=== PATIENT | female | born 1970 | race Caucasian/White ===

== ENCOUNTER 2016-12-10 04:01 | Emergency (ER) ==
[2016-12-10 04:14] VITALS: BP 153/86; TEMP 98.7; BMI 32.8
[2016-12-10] MEDS ORDERED: DILAUDID 2 MG/ML SYRINGE IM STA ×2 (04:53→05:40)
[2016-12-10] MEDS ORDERED: ZOFRAN 4 MG/2 ML IM STA (04:53)
--- NOTE | 2016-12-10 04:59 | ED.PDOC ---
General ED Provider: Dr. BEVERLY ULRICH Chief Complaint: Kidney Stone Stated Complaint: been hurting in the left side of the abdomen, has h/i kidney stones. Time Seen by Physician: 04:57 Mode of Arrival: Walk-In Information Source: Patient Primary Care Provider: BEVERLY ULRICH[facility] Nursing and Triage Documentation Reviewed and Agree: Yes GI Complaint Exam - Abdominal Pain Complaint/Exam Onset: Gradual Symptoms Are: Still present Timing: Constant Initial Severity: Severe Current Severity: Severe Location of Pain: LLQ Radiates To: Reports: Back, Flank Character: Reports: Aching, Throbbing Aggravating: Reports: Movement, Deep breaths Alleviating: Reports: None Associated Signs and Symptoms: Reports: Nausea, Vomiting. Denies: Diaphoresis, Fever, Cough, Chest pain, Dizziness, Back pain, Constipation, Blood in stool, Dysuria, Urinary frequency, Decreased urine output, Decreased appetite, Vaginal bleeding, Vaginal discharge, Diarrhea, Sore throat, Decreased activity Related History: Reports: Similar episode AAA Risk Factors: Reports: None Cardiac Risk Factors: Reports: None Ectopic Risk Factors: Reports: None Ovarian Torsion Risk Factors: Reports: None Surgical Obstruction Risk Factors: Reports: None Related Surgical History: Reports: None Patient Rh Status: Unknown Abdominal Findings: Absent: Pulsatile mass, Abdominal distention, Unequal femoral pulses, Rebound tenderness, CVA Tenderness Differential Diagnoses: Renal Colic, Ureteral Stone Review of Systems - Review Of Systems Constitutional: Reports: Malaise, Weakness Eyes: Reports: No symptoms Ears, Nose, Mouth, Throat: Reports: No symptoms Respiratory: Reports: No symptoms Cardiac: Reports: No symptoms GI: Reports: Abdominal pain, Nausea, Vomiting : Reports: No symptoms Musculoskeletal: Reports: No symptoms Skin: Reports: No symptoms Neurological: Reports: No symptoms Endocrine: Reports: No symptoms Hematologic/Lymphatic: Reports: No symptoms All Other Systems: Reviewed and Negative Past Medical History - Past Medical History Previously Healthy: Yes Endocrine: Reports: None Cardiovascular: Reports: None, Other (MVP) Respiratory: Reports: None Hematological: Reports: None Gastrointestinal: Reports: None Genitourinary: Reports: Kidney stones Neuro/Psych: Reports: Migraine Musculoskeletal: Reports: None Cancer: Reports: None Last Menstrual Period: 2004 Other Pertinent Past Medical History: BREAST REDUCTION, GALLBLADDERks migr mvp - Surgical History General Surgical History: Reports: Hysterectomy, Cholecystectomy, Other (BREAST REDUCTION, GALLBLADDER) - Family History Family History: Reports: Unknown - Social History Smoking Status: Never smoker Hx Substance Use: No Alcohol Screening: None - Immunizations Tetanus Shot up to Date: Yes Physical Exam - Physical Exam Appearance: Ill-appearing, Obese Ill-appearing: Severe Pain Distress: Severe Eyes: FERNANDA, EOMI, Conjunctiva clear ENT: Ears normal, Nose normal, Oropharynx normal Respiratory: Airway patent, Breath sounds clear, Breath sounds equal, Respirations nonlabored Cardiovascular: RRR, Pulses normal, No rub, No murmur GI/: Soft, Tender, Bowel sounds hypoactive Musculoskeletal: Normal strength, ROM intact, No edema, No calf tenderness Skin: Warm, Dry, Normal color Neurological: Sensation intact, Motor intact, Reflexes intact, Cranial nerves intact, Alert, Oriented Psychiatric: Affect appropriate, Mood appropriate Interpretation - Radiology Interpretation Radiology Interpretation By: Radiologist Radiology Results: Positive Exam Interpreted: CT Scan Critical Care Note - Critical Care Note Total Time (mins): 0 Course - Course Hematology/Chemistry: 12/10/16 05:40 12/10/16 05:40 Orders, Labs, Meds: Lab Review 12/10/16 12/10/16 05:08 05:40 WBC 10.49 H RBC 4.41 Hgb 13.0 Hct 39.5 MCV 89.6 MCH 29.5 MCHC 32.9 RDW Coeff of Arielle 14.0 Plt Count 279 Immature Gran % (Auto) 0.5 Neut % (Auto) 60.4 Lymph % (Auto) 29.7 [place] % (Auto) 6.8 Eos % (Auto) 2.0 Baso % (Auto) 0.6 Immature Gran # (Auto) 0.1 Neut # 6.3 Lymph # 3.1 [place] # 0.7 Eos # 0.2 Baso # 0.1 Sodium 140 Potassium 4.2 Chloride 107 Carbon Dioxide 25 Anion Gap 12.2 BUN 15 Creatinine 0.86 Estimated GFR (MDRD) 71.00 BUN/Creatinine Ratio 17.44 Glucose 106 Calcium 9.1 Total Bilirubin 0.29 AST 19 ALT 27 Alkaline Phosphatase 120 H Total Protein 7.1 Albumin 3.5 Globulin 3.6 Albumin/Globulin Ratio 0.97 Urine Color Yellow Urine Clarity Slightly Urine pH 5.5 Ur Specific Sharon >=1.030 Urine Protein Negative Urine Glucose (UA) Negative Urine Ketones Negative Urine Blood Trace-lysed Urine Nitrite Negative Urine Bilirubin Negative Urine Urobilinogen 0.2 Ur Leukocyte Esterase Negative Urine Microscopic RBC 0-2 Urine Microscopic WBC 0-2 Ur Squamous Epith Cells 10-20 Orders Category Date Time Status CBC W/ AUTO DIFF Stat LAB 12/10/16 05:40 Completed COMPREHENSIVE METABOLIC PANEL Stat LAB 12/10/16 05:40 Completed URINALYSIS C & S IF INDICATED Stat LAB 12/10/16 05:08 Completed Hydromorphone HCl/Pf [Dilaudid 2 mg/ml Syringe] MEDS 12/10/16 04:53 Discontinued 2 mg IM ONCE STA Hydromorphone HCl/Pf [Dilaudid 2 mg/ml Syringe] MEDS 12/10/16 05:40 Discontinued 2 mg IM ONCE STA Ondansetron HCl/Pf [Zofran 4 mg/2 ml] MEDS 12/10/16 04:53 Discontinued 4 mg IM ONCE STA Tamsulosin HCl [Flomax] MEDS 12/10/16 06:34 Discontinued 0.4 mg PO ONCE STA CT ABDOMEN/PELVIS WO CONTRAST Stat RADS 12/10/16 04:47 Completed Medications Discontinued Medications Generic Name Dose Route Start Last Admin Trade Name Freq PRN Reason Stop Dose Admin Hydromorphone HCl 2 mg 12/10/16 04:53 12/10/16 05:02 Dilaudid 2 Mg/Ml Syringe IM 12/10/16 04:54 2 mg ONCE STA Administration Hydromorphone HCl 2 mg 12/10/16 05:40 12/10/16 06:07 Dilaudid 2 Mg/Ml Syringe IM 12/10/16 05:41 2 mg ONCE STA Administration Ondansetron HCl 4 mg 12/10/16 04:53 12/10/16 05:04 Zofran 4 Mg/2 Ml IM 12/10/16 04:54 4 mg ONCE STA Administration Tamsulosin HCl 0.4 mg 12/10/16 06:34 Flomax PO 12/10/16 06:35 ONCE STA Vital Signs: Temp Pulse Resp BP Pulse Ox 12/10/16 04:02 98.7 F 81 20 153/86 H 97 Departure - Departure Time of Disposition: 07:14 Disposition: HOME SELF-CARE Discharge Problem: Kidney stone Instructions: Renal Colic (ED) Condition: Stable Pt referred to PMD for follow-up: Yes Additional Instructions: increase hydration needs f./u with urologist Prescriptions: Ondansetron [Zofran Odt] 4 mg PO Q8H #20 tab.rapdis Oxycodone HCl/Acetaminophen [Percocet 7.5-325 mg Tablet] 1 tab PO TID PRN #12 tablet PRN Reason: PAIN Allergies/Adverse Reactions: Allergies cephalexin monohydrate [From Keflex] Adverse Reaction (Verified 12/10/16 04:09) meperidine HCl [From Demerol] Adverse Reaction (Verified 12/10/16 04:09) morphine Adverse Reaction (Verified 12/10/16 04:09) Home Medications: Ambulatory Orders Ibuprofen [Motrin] 600 mg PO Q6H PRN #30 tablet 08/11/16 Ondansetron [Zofran Odt] 4 mg PO Q8H #20 tab.rapdis 12/10/16 Oxycodone HCl/Acetaminophen [Percocet 7.5-325 mg Tablet] 1 tab PO TID PRN #12 tablet 12/10/16 Disposition Discussed With: Patient, Family
[2016-12-10 05:22] LABS: BILIRUBIN,URINE Negative (NEGATIVE); KETONES,URINE Negative (NEGATIVE); LEUKOCYTE ESTERASE ,URINE Negative (NEGATIVE); NITRITE,URINE Negative (NEGATIVE); PH,URINE 5.5 (5-9); PROTEIN,URINE Negative (NEGATIVE); URINE, BLOOD Trace-lysed (NEGATIVE)
[2016-12-10 05:38] LABS: ADD URINE MICROSCOPIC YES
[2016-12-10 05:42] LABS: BASOPHILS # (AUTO) 0.1 K/uL (0-0.2); BASOPHILS % (AUTO) 0.6 % (0.0-3.0); EOSINOPHILS # (AUTO) 0.2 K/ul (0.0-0.7); HEMATOCRIT 39.5 % (37.0-47.0); IMMATURE GRANULOCYTE % (AUTO) 0.5 % (0.0-5.0); LYMPHOCYTES # (AUTO) 3.1 K/uL (0.60-3.4); LYMPHOCYTES % (AUTO) 29.7 (10.0-50.0); MEAN CORPUSCULAR HEMOGLOBIN 29.5 pg (27.0-31.0); MEAN CORPUSCULAR HGB CONC 32.9 (31.8-35.4); MEAN CORPUSCULAR VOLUME 89.6 fl (81.0-99.0); MONOCYTES # (AUTO) 0.7 K/uL (0.4-2.0); MONOCYTES % (AUTO) 6.8 (0-10); NEUTROPHILS # (AUTO) 6.3 K/ul (2.0-6.9); NEUTROPHILS % (AUTO) 60.4; PLATELET COUNT 279 10^3/uL (140-440); RED BLOOD COUNT 4.41 10^6/ul (4.20-5.40); WHITE BLOOD COUNT 10.49 K/ul (4.6-10.2)
[2016-12-10 06:06] LABS: ALBUMIN 3.5 g/dL (3.4-5.0); ALBUMIN/GLOBULIN RATIO 0.97; ANION GAP 12.2; BILIRUBIN,TOTAL 0.29 mg/dL (0.00-1.20); BUN/CREATININE RATIO 17.44; CALCIUM 9.1 mg/dL (8.2-10.2); CREATININE 0.86 mg/dL (0.60-1.30); POTASSIUM 4.2 mmol/L (3.5-5.10); TOTAL PROTEIN 7.1 g/dL (6.4-8.2)
--- NOTE | 2016-12-10 06:31 | CT ---
Exam: CT of the abdomen and pelvis without contrast History: Flank pain Technique: [address] of the abdomen and pelvis without intravascular contrast FINDINGS: The lung bases are clear. No significant liver abnormality. The adrenals, pancreas and sp regina are unremarkable. The stomach and hiatus are unremarkable. Prior cholecystectomy. Diverticulos is of the transverse duodenum. Punctate nonobstructing calculus in the left kidney. The left urete r is prominent compared with contralateral side. There is a 2 mm ureterovesicular junction calculus on the left. The appendix is normal. Normal caliber bowel loops. No inflammation of the mesenter y or retroperitoneum. Vascular structures appear normal by noncontrast CT. Colonic diverticulosis of the sigmoid. No inflammation of the pelvic fat. Left ureterovesicular ju nction calculus described above. Prior hysterectomy. Normal urinary bladder. No acute findings of the skeleton. Impression: 1. Mild left hydroureter with 2 mm ureterovesicular junction calculus. 2. Punctate nonobstructing calculus in the left kidney 3. Colonic diverticulosis of the sigmoid
[2016-12-10] MEDS ORDERED: FLOMAX PO STA (06:34)
== END 2016-12-10 07:30 | disposition home or self-care (01) ==
LOC: ED 04:01
DX: N20.9 Urinary calculus, unspecified (principal); Z87.442 Personal history of urinary calculi
CPT/HCPCS: 36415; 80053; 81001; 85025; 96372; 99283

== ENCOUNTER 2017-07-08 16:07 | Outpatient (CLI) ==
--- NOTE | 2017-07-08 16:47 | DI ---
EXAM: LEFT ELBOW HISTORY: Lateral epicondylitis FINDINGS: Left elbow three-view. Bone and joint structures appear normal. There is no joint disloc ation or effusion. No fracture is identified. Bone density and soft tissues are within normal limit s. IMPRESSION: Findings within normal limits radiographically.
== END 2017-07-08 16:08 | disposition home or self-care (01) ==
LOC: RAD 16:07
PROVIDERS: ATTEND Emergency Medicine
DX: M25.522 Pain in left elbow (principal); M77.10 Lateral epicondylitis, unspecified elbow

== ENCOUNTER 2017-10-21 19:01 | Outpatient (CLI) | END 2017-10-21 19:02 | disposition home or self-care (01) | LOC: LAB 19:01 | PROVIDERS: ATTEND Emergency Medicine | DX: J06.9 Acute upper respiratory infection, unspecified (principal) | CPT/HCPCS: 87502; 87651 ==

== ENCOUNTER 2017-11-23 16:35 | Outpatient (CLI) ==
--- NOTE | 2017-11-23 17:01 | DI ---
EXAM: Three views of the lumbar spine. History: Lumbago with sciatica, right-sided back pain. Comparison: Lumbar spine radiograph 11/11/2013 Findings: Cholecystectomy clips. Punctate 1 mm left renal calculus. No acute fracture or subluxati on of the lumbar spine. Mild to moderate disc space narrowing at L3-L4, L4-L5 and L5-S1 with small o steophytes. Moderate facet hypertrophy at L5-S1 and probably worse on the right. Impression: 1. No acute osseous abnormality of the lumbar spine. 2. Mild to moderate degenerative changes of the lower lumbar spine. 3. Punctate 1 mm left renal calculus. 4. Moderate facet hypertrophy at L5-S1 and probably worse on the right. If symptoms persist, recomm end MRI
== END 2017-11-23 16:36 | disposition home or self-care (01) ==
LOC: RAD 16:35
PROVIDERS: ATTEND Emergency Medicine
DX: M54.41 Lumbago with sciatica, right side (principal)

== ENCOUNTER 2018-10-12 12:28 | Outpatient (CLI) | END 2018-10-12 12:29 | disposition home or self-care (01) | LOC: RHC-LAB 12:28 | PROVIDERS: ATTEND Nurse Practitioner Family | DX: R05 Cough (principal); J02.9 Acute pharyngitis, unspecified | CPT/HCPCS: 87502; 87651 ==

== ENCOUNTER 2019-02-28 16:48 | Outpatient (CLI) | END 2019-02-28 16:49 | disposition home or self-care (01) | LOC: LAB 16:48 | PROVIDERS: ATTEND Family Medicine | DX: R30.0 Dysuria (principal); R05 Cough; J01.90 Acute sinusitis, unspecified; J02.9 Acute pharyngitis, unspecified | CPT/HCPCS: 36415; 80053; 80061; 81001; 84443; 85025; 87086; 87186; 87651 ==